=== PATIENT | female | born 1965 | race Caucasian/White ===

== ENCOUNTER 2017-09-01 10:51 | Emergency (ER) | payer OTHER ==
--- OUTSIDE RECORDS SUMMARY | 2017-09-01 10:54 | XMS REPORT ---
:1965 Author Organization [employer] Care Team Providers Name Role Phone Carolina oRdriguez Provider Role Unavailable Allergies, Adverse Reactions, Alerts Substance Reaction Event Type N.K.D.A. 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
--- OUTSIDE RECORDS SUMMARY | 2017-09-01 10:54 | XMS REPORT ---
:1965 Author Organization [employer] Care Team Providers Name Role Phone Carolina Rodriguez Provider Role Unavailable Allergies, Adverse Reactions, Alerts Substance Reaction Event Type N.K.D.A. 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
[2017-09-01] MEDS ORDERED: CLINDAMYCIN 900MG/D5W 900 MG/50 ML BAG IV ONE (12:17)
[2017-09-01] MEDS ORDERED: SMZ./TMP. 800/160 MG TABLET ONE (12:17)
[2017-09-01] MEDS ORDERED: DEXAMETHASONE 10 MG/ML VIAL ONE (12:17)
[2017-09-01] MEDS ORDERED: DIAZEPAM 2 MG TABLET ONE (12:17)
[2017-09-01] MEDS ORDERED: MEPERIDINE HCL 25 MG/0.5 ML ONE (12:50)
[2017-09-01] MEDS ORDERED: NA CHLORIDE 0.9% 100 ML IV ONE (12:51)
--- NOTE | 2017-09-01 13:41 | ER ---
Nurse's Notes [facility] Name: Gwen Goff Age: 51 yrs Sex: Female : 1965 Arrival Date: 09/01/2017 Time: 10:55 Bed 15 Private MD: Carolina Rodriguez Diagnosis: Facial Cellulitis;Dental Abscess Presentation: 09/01 11:14 Presenting complaint: Patient states: pulled tooth yesterday, swelling to face today. ch Transition of care: patient was not received from another setting of care. Onset of symptoms was August 31, 2017 at 14:00. Risk Assessment: Do you want to hurt yourself or someone else? Patient reports no desire to harm self or others. Initial Sepsis Screen: Does the patient meet any 2 criteria? No. Patient's initial sepsis screen is negative. Does the patient have a suspected source of infection? No. Patient's initial sepsis screen is negative. Care prior to arrival: None. 11:14 Method Of Arrival: Ambulatory 11:14 Acuity: DEBBIE 3 Triage Assessment: 11:14 General: Appears in no apparent distress. comfortable, Behavior is calm, cooperative, ch appropriate for age. Pain: Complains of pain in face Pain currently is 8 out of 10 on a pain scale. 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 - Social history:: Smoking status: Patient/guardian denies using tobacco, Patient uses alcohol, weekly. Patient/guardian denies using street drugs. - Ebola Screening: : Patient negative for fever greater than or equal to 101.5 degrees Fahrenheit, and additional compatible Ebola Virus Disease symptoms Patient denies exposure to infectious person Patient denies travel to an Ebola-affected area in the 21 days before illness onset No symptoms or risks identified at this time. - Family history:: not pertinent. - Hospitalizations: : No recent hospitalization is reported. Screenin:26 Abuse screen: Denies threats or abuse. Denies injuries from another. Nutritional ch screening: No deficits noted. Tuberculosis screening: No symptoms or risk factors identified. Fall Risk None identified. Assessment: 12:26 Reassessment: Patient appears in no apparent distress at this time. No changes from previously documented assessment. Patient and/or family updated on plan of care and expected duration. Pain level reassessed. pt is tearful in room, states she feels very anxious, like the world is crashing down on her. erp notified, pt was just medicated with Valium, will wait and see how the pt feels in 15-20 min. General: Appears in no apparent distress. comfortable, Behavior is calm, cooperative, appropriate for age. Neuro: No deficits noted. Level of Consciousness is awake, alert, obeys commands, Oriented to person, place, time, situation. 14:41 Reassessment: Patient appears in no apparent distress at this time. Patient and/or ch family updated on plan of care and expected duration. Pain level reassessed. Patient is alert, oriented x 3, equal unlabored respirations, skin warm/dry/pink. Patient states feeling better. Patient states symptoms have improved. Vital Signs: 11:16 BP 128 / 78; Pulse 70; Resp 14; Temp 98.6; Pulse Ox 97% on R/A; Weight 99.79 kg; Height ch 5 ft. 6 in. (167.64 cm); Pain 8/10; 12:40 BP 110 / 85; Pulse 65; Resp 14; Pulse Ox 99% on R/A; ch 14:41 BP 108 / 76; Pulse 62; Resp 14; Temp 97.9; Pulse Ox 99% on R/A; Pain 2/10; ch 11:16 Body Mass Index 35.51 (99.79 kg, 167.64 cm) ED Course: 10:55 Patient arrived in ED. mr 10:55 Carolina Rodriguez MD is Private Physician. mr 11:14 Lynda Goodrich, SRINIVAS is Primary Nurse. ch 11:15 Triage completed. ch 11:16 Arm band placed on left wrist. Patient placed in an exam room, on pulse oximetry. ch 11:25 Hudson Cardozo MD is Attending Physician. rn 12:24 Inserted saline lock: 20 gauge in left antecubital area, using aseptic technique. jl7 12:26 No apparent distress. Resting quietly. ch 12:26 Patient has correct armband on for positive identification. Placed in gown. Bed in low ch position. Call light in reach. Side rails up X 1. Adult w/ patient. Pulse ox on. NIBP on. Warm blanket given. 12:26 No provider procedures requiring assistance completed. ch 13:40 Carolina Rodriguez MD is Referral Physician. rn 14:41 IV discontinued, intact, bleeding controlled, No redness/swelling at site. Pressure ch dressing applied. Administered Medications: 12:17 Drug: Decadron - Dexamethasone 10 mg Route: IVP; Site: left antecubital; jl7 14:42 Follow up: Response: No adverse reaction; Marked relief of symptoms ch 12:20 Drug: Clindamycin 900 mg Route: IVPB; Infused Over: 30 mins; Site: left antecubital; jl7 14:42 Follow up: IV Status: Completed infusion; IV Intake: 50ml ch 12:23 Drug: Bactrim (160 mg-800 mg (DS) 1 tablet Route: PO; jl7 14:43 Follow up: Response: No adverse reaction; Marked relief of symptoms ch 12:23 Drug: Valium 2 mg Route: PO; jl7 14:42 Follow up: Response: No adverse reaction; Marked relief of symptoms ch 13:00 Drug: Demerol 25 mg Route: IVP; Site: left antecubital; ch 14:42 Follow up: Response: No adverse reaction; Marked relief of symptoms ch Intake: 14:42 IV: 50ml; Total: 50ml. ch Outcome: 13:41 Discharge ordered by . rn 14:41 Discharged to home ambulatory, with family. ch 14:41 Condition: improved 14:41 Discharge instructions given to patient, family, Instructed on discharge instructions, follow up and referral plans. no drinking with medication, no driving heavy equipment, medication usage, Demonstrated understanding of instructions, follow-up care, medications, Prescriptions given X 1. 14:43 Patient left the ED. ch Signatures: Lynda Goodrich RN RN ch Rivera, Maria mr Nieto, Roman, MD MD rn Leal, Jahala, RN RN jl7
--- NOTE | 2017-09-01 13:41 | EDPHYS ---
Physician Documentation [facility] Name: Gwen Goff Age: 51 yrs Sex: Female : 1965 Arrival Date: 09/01/2017 Time: 10:55 Bed 15 Private MD: Carolina Rodriguez ED Physician Hudson Cardozo HPI: 09/01 12:39 This 51 yrs old Female presents to ER via Ambulatory with complaints of rn Facial Swelling. 12:39 The patient presents with pain, swelling. The problem is located in the face. Onset: rn The symptoms/episode began/occurred yesterday. Duration: The symptoms are continuous. Severity of symptoms: At their worst the symptoms were moderate, in the emergency department the symptoms are unchanged. The patient has experienced a previous episode. Reports seen yesterday at dentist's office, had tooth pulled, abscess lanced, sutured, and bridge placed, had swelling after procedure, got worse today, called dentist who told her to come here for possible allergic reaction or needing IV abx. . 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 - Social history:: Smoking status: Patient/guardian denies using tobacco, Patient uses alcohol, weekly. Patient/guardian denies using street drugs. - Ebola Screening: : Patient negative for fever greater than or equal to 101.5 degrees Fahrenheit, and additional compatible Ebola Virus Disease symptoms Patient denies exposure to infectious person Patient denies travel to an Ebola-affected area in the 21 days before illness onset No symptoms or risks identified at this time. - Family history:: not pertinent. - Hospitalizations: : No recent hospitalization is reported. ROS: 12:39 Constitutional: Negative for fever, chills, and weight loss, Eyes: Negative for injury, rn pain, redness, and discharge, ENT: + facial swelling and dental pain Neck: Negative for injury, pain, and swelling, Cardiovascular: Negative for chest pain, palpitations, and edema, Respiratory: Negative for shortness of breath, cough, wheezing, and pleuritic chest pain, Abdomen/GI: Negative for abdominal pain, nausea, vomiting, diarrhea, and constipation, MS/Extremity: Negative for injury and deformity, Skin: + thickening of left cheek face Neuro: Negative for headache, weakness, numbness, tingling, and seizure. Exam: 12:39 Constitutional: This is a well developed, well nourished patient who is awake, alert, rn and in no acute distress. Head/Face: Normocephalic, atraumatic. ENT: + left upper gum line with mild swelling/inflammation, + left buccal space with induration, no fluctuance, extends from inferior of left eye to submandibular space. No swelling of floor of mouth. Neck: Trachea midline, no thyromegaly or masses palpated, and no cervical lymphadenopathy. Supple, full range of motion without nuchal rigidity, or vertebral point tenderness. No Meningismus. Neuro: Awake and alert, GCS 15, oriented to person, place, time, and situation. Cranial nerves II-XII grossly intact. Motor strength 5/5 in all extremities. Sensory grossly intact. Cerebellar exam normal. Normal gait. Vital Signs: 11:16 BP 128 / 78; Pulse 70; Resp 14; Temp 98.6; Pulse Ox 97% on R/A; Weight 99.79 kg; Height ch 5 ft. 6 in. (167.64 cm); Pain 8/10; 12:40 BP 110 / 85; Pulse 65; Resp 14; Pulse Ox 99% on R/A; ch 14:41 BP 108 / 76; Pulse 62; Resp 14; Temp 97.9; Pulse Ox 99% on R/A; Pain 2/10; ch 11:16 Body Mass Index 35.51 (99.79 kg, 167.64 cm) ch MDM: 11:26 Patient medically screened. rn 13:38 Differential diagnosis: dental caries, dental abscess, buccal cellulitis, facial rn cellulitis. Data reviewed: vital signs, nurses notes, and as a result, I will discharge patient. Counseling: I had a detailed discussion with the patient and/or guardian regarding: the historical points, exam findings, and any diagnostic results supporting the discharge/admit diagnosis, the need for outpatient follow up, to return to the emergency department if symptoms worsen or persist or if there are any questions or concerns that arise at home. Special discussion: I discussed with the patient/guardian in detail that at this point there is no indication for admission to the hospital. It is understood, however, that if the symptoms persist or worsen the patient needs to return immediately for re-evaluation. ED course: Return precautions given, no abscess currently, dental abscess just drained, has only had single dose of clinda, iv clinda and bactrim po given here, will given trial of abx at home, no indication for admission currently, will dc home with dental f/u. . 09/01 11:49 Order name: IV Start; Complete Time: 12:23 rn Administered Medications: 12:17 Drug: Decadron - Dexamethasone 10 mg Route: IVP; Site: left antecubital; 7 14:42 Follow up: Response: No adverse reaction; Marked relief of symptoms ch 12:20 Drug: Clindamycin 900 mg Route: IVPB; Infused Over: 30 mins; Site: left antecubital; 7 14:42 Follow up: IV Status: Completed infusion; IV Intake: 50ml ch 12:23 Drug: Bactrim (160 mg-800 mg (DS) 1 tablet Route: PO; 7 14:43 Follow up: Response: No adverse reaction; Marked relief of symptoms ch 12:23 Drug: Valium 2 mg Route: PO; jl7 14:42 Follow up: Response: No adverse reaction; Marked relief of symptoms ch 13:00 Drug: Demerol 25 mg Route: IVP; Site: left antecubital; 14:42 Follow up: Response: No adverse reaction; Marked relief of symptoms ch Disposition: 09/01/17 13:41 Discharged to Home. Impression: Facial Cellulitis, Dental Abscess. - Condition is Stable. - Discharge Instructions: Cellulitis, Dental Abscess. - Prescriptions for Bactrim DS 800- 160 mg Oral Tablet - take 1 tablet by ORAL route every 12 hours for 10 days; 20 tablet. - Work release form, Medication Reconciliation Form, Thank You Letter, Antibiotic Education, Prescription Opioid Use form. - Follow up: Carolina Rodriguez MD; When: 2 - 3 days; Reason: Recheck today's complaints, Re-evaluation by your physician. - Problem is new. - Symptoms have improved. Signatures: Lynda Goodrich RN RN Hudson Cardozo MD MD rn Leal, Jahala, RN RN jl7 Corrections: (The following items were deleted from the chart) 14:43 13:41 09/01/2017 13:41 Discharged to Home. Impression: Facial Cellulitis; Dental ch Abscess. Condition is Stable. Forms are Medication Reconciliation Form, Thank You Letter, Antibiotic Education, Prescription Opioid Use. Follow up: Carolina Rodriguez; When: 2 - 3 days; Reason: Recheck today's complaints, Re-evaluation by your physician. Problem is new. Symptoms have improved. rn
== END 2017-09-01 14:43 | disposition home or self-care (01) ==
LOC: ER 10:51
DX: L03.211 Cellulitis of face (principal); K04.7 Periapical abscess without sinus; Z88.0 Allergy status to penicillin
CPT/HCPCS: 96365; 96366; 96375; 99284; J1100; J2175